=== PATIENT | female | born 1990 | race Caucasian/White ===

== ENCOUNTER 2017-12-13 14:01 | Outpatient (REF) | payer MEDICAID, SELFPAY ==
[2017-12-13 19:56] LABS: ALT 18 U/L (12-78); AST 19 U/L (15-37); Albumin 3.2 g/dL (3.4-5.0); Alkaline Phosphatase 94 U/L (46-116); Anion Gap 10.9 mmol/L (3-11); BUN 9 mg/dL (7-18); Bilirubin, Total 0.1 mg/dL (0.2-1.0); CO2 26.1 mmol/L (21.0-32.0); CREATININE 0.99 mg/dL (0.55-1.02); Calcium 8.8 mg/dL (8.5-10.1); Chloride 107 mmol/L (98-107); Glucose 126 mg/dL (70-100); HCG Quant, Pregnancy 1 mIU/mL (1-3); Potassium 3.6 mmol/L (3.5-5.1); Sodium 144 mmol/L (136-145); TSH (W/Ref FT4) 1.26 uIU/mL (0.358-3.74); Total Protein 6.8 g/dL (6.4-8.2)
== END 2017-12-13 14:21 ==
LOC: NCHCN 14:01
PROVIDERS: PCP Internal Medicine; Visit Provider Nurse Practitioner Family
DX: R63.5 Abnormal weight gain (principal); N91.2 Amenorrhea, unspecified
CPT/HCPCS: 80053; 87077; 84443; 84702; 87086; 87186; 87480; 87510; 87660

== ENCOUNTER 2018-01-03 14:34 | Outpatient (REF) | payer MEDICAID, SELFPAY ==
[2018-01-03 18:36] LABS: HCT 34.8 % (36.0-46.0); HGB 10.8 g/dL (12.0-15.5); Mean Corpuscular Hemoglobin 24.2 pg (27.0-33.0); Mean Corpuscular Volume 77.9 fL (80-95); Mean Platelet Volume 11.2 fL (8.0-11.0); Platelet Count 318 x1000/uL (130-400); RBC 4.47 m/cumm (4.00-5.20); White Blood Cell Count 8.66 k/cumm (4.4-10.8)
== END 2018-01-03 14:54 ==
LOC: NCHCN 14:34
PROVIDERS: PCP Internal Medicine; Visit Provider Nurse Practitioner Family
DX: K57.92 Diverticulitis of intestine, part unspecified, without perforation or abscess without bleeding (principal)
CPT/HCPCS: 85027

== ENCOUNTER 2018-07-27 13:01 | Outpatient (REF) | payer MEDICAID, SELFPAY ==
[2018-07-27 18:50] LABS: HCT 37.3 % (36.0-46.0); HGB 11.5 g/dL (12.0-15.5); Mean Corp. HGB Concentration 30.8 g/dL (32.0-36.0); Mean Corpuscular Hemoglobin 23.2 pg (27.0-33.0); Mean Corpuscular Volume 75.2 fL (80-95); Mean Platelet Volume 10.8 fL (8.0-11.0); Platelet Count 542 x1000/uL (130-400); RBC 4.96 m/cumm (4.00-5.20); RBC Distribution Width 17.3 % (11.7-14.6); White Blood Cell Count 6.29 k/cumm (4.4-10.8)
[2018-07-27 18:53] LABS: ALT 17 U/L (12-78); AST 23 U/L (15-37); Alkaline Phosphatase 80 U/L (46-116); Anion Gap 8.5 mmol/L (3-11); BUN 5 mg/dL (7-18); Bilirubin, Total 0.2 mg/dL (0.2-1.0); CO2 29.5 mmol/L (21.0-32.0); CREATININE 0.53 mg/dL (0.55-1.02); Calcium 8.8 mg/dL (8.5-10.1); Chloride 101 mmol/L (98-107); Glucose 78 mg/dL (70-100); Potassium 3.4 mmol/L (3.5-5.1); Sodium 139 mmol/L (136-145); Total Protein 6.7 g/dL (6.4-8.2)
== END 2018-07-27 13:21 ==
LOC: NCHCN 13:01
PROVIDERS: PCP Internal Medicine; Visit Provider Internal Medicine
DX: K50.90 Crohn's disease, unspecified, without complications (principal); R11.2 Nausea with vomiting, unspecified; F11.20 Opioid dependence, uncomplicated; J45.41 Moderate persistent asthma with (acute) exacerbation
CPT/HCPCS: 80053; 85027

== ENCOUNTER 2018-08-23 12:35 | Outpatient (REF) | payer MEDICAID, SELFPAY ==
[2018-08-23 20:55] LABS: HCT 39.7 % (36.0-46.0); HGB 12.2 g/dL (12.0-15.5); Mean Corp. HGB Concentration 30.7 g/dL (32.0-36.0); Mean Corpuscular Hemoglobin 24.4 pg (27.0-33.0); Mean Corpuscular Volume 79.6 fL (80-95); Mean Platelet Volume 10.7 fL (8.0-11.0); Platelet Count 485 x1000/uL (130-400); RBC 4.99 m/cumm (4.00-5.20); RBC Distribution Width 17.9 % (11.7-14.6); White Blood Cell Count 5.97 k/cumm (4.4-10.8)
[2018-08-23 21:06] LABS: ALT 16 U/L (12-78); AST 13 U/L (15-37); Albumin 3.7 g/dL (3.4-5.0); Alkaline Phosphatase 74 U/L (46-116); Anion Gap 9.1 mmol/L (3-11); BUN 11 mg/dL (7-18); Bilirubin, Total 0.2 mg/dL (0.2-1.0); CO2 28.9 mmol/L (21.0-32.0); CREATININE 0.71 mg/dL (0.55-1.02); Calcium 9.4 mg/dL (8.5-10.1); Chloride 101 mmol/L (98-107); Glucose 102 mg/dL (70-100); Potassium 4.5 mmol/L (3.5-5.1); Sodium 139 mmol/L (136-145); Total Protein 7.3 g/dL (6.4-8.2)
[2018-08-23 21:50] LABS: ESR 12 MM/HR (0-20)
== END 2018-08-23 12:55 ==
LOC: NCHCN 12:35
PROVIDERS: PCP Internal Medicine; Visit Provider Internal Medicine
DX: K50.90 Crohn's disease, unspecified, without complications (principal); F11.20 Opioid dependence, uncomplicated; H66.019 Acute suppurative otitis media with spontaneous rupture of ear drum, unspecified ear
CPT/HCPCS: 80053; 85027; 85652

== ENCOUNTER 2018-11-28 15:43 | Outpatient (REF) | payer MEDICAID, SELFPAY ==
[2018-11-28 18:48] LABS: Abs Immature Grans 0.05 k/cumm (0.0-0.09); Absolute Basophil Count 0.02 k/cumm (0.0-0.2); Absolute Eosinophil Count 0.02 k/cumm (0.0-0.7); Absolute Lymphocyte Count 1.34 k/cumm (1.2-3.4); Absolute Monocyte Count 0.54 k/cumm (0.11-0.7); Basophils % 0.2; Eosinophils % 0.2; HGB 11.8 g/dL (12.0-15.5); Immature Grans % 0.5; Lymphocytes % 14.3; Mean Corp. HGB Concentration 32.8 g/dL (32.0-36.0); Mean Corpuscular Hemoglobin 26.9 pg (27.0-33.0); Mean Platelet Volume 10.4 fL (8.0-11.0); Monocytes % 5.8; Platelet Count 332 x1000/uL (130-400); RBC 4.39 m/cumm (4.00-5.20); RBC Distribution Width 14.2 % (11.7-14.6); White Blood Cell Count 9.37 k/cumm (4.4-10.8)
[2018-11-28 19:05] LABS: ALT 20 U/L (12-78); AST 11 U/L (15-37); Albumin 3.4 g/dL (3.4-5.0); Alkaline Phosphatase 55 U/L (46-116); Bilirubin, Total 0.2 mg/dL (0.2-1.0); Total Protein 7.1 g/dL (6.4-8.2)
[2018-11-28 19:13] LABS: Bilirubin, Direct < 0.05 mg/dL (0.00-0.20)
== END 2018-11-28 16:03 ==
LOC: LBN 15:43
PROVIDERS: PCP Internal Medicine; Visit Provider Internal Medicine
DX: K52.9 Noninfective gastroenteritis and colitis, unspecified (principal)
CPT/HCPCS: 80076; 85025

== ENCOUNTER 2018-12-19 18:53 | Outpatient (REF) | payer MEDICAID, SELFPAY ==
[2018-12-19 18:49] LABS: HCT 32.2 % (36.0-46.0); HGB 10.4 g/dL (12.0-15.5); Mean Corp. HGB Concentration 32.3 g/dL (32.0-36.0); Mean Corpuscular Hemoglobin 26.6 pg (27.0-33.0); Mean Corpuscular Volume 82.4 fL (80-95); Mean Platelet Volume 10.8 fL (8.0-11.0); Platelet Count 377 x1000/uL (130-400); RBC 3.91 m/cumm (4.00-5.20); RBC Distribution Width 14.2 % (11.7-14.6)
[2018-12-19 18:52] LABS: Anion Gap 10.5 mmol/L (3-11); BUN 9 mg/dL (7-18); CO2 23.5 mmol/L (21.0-32.0); CREATININE 0.66 mg/dL (0.55-1.02); Calcium 8.2 mg/dL (8.5-10.1); Chloride 103 mmol/L (98-107); Glucose 95 mg/dL (70-100); Potassium 3.3 mmol/L (3.5-5.1); Sodium 137 mmol/L (136-145)
== END 2018-12-19 19:13 ==
LOC: NCHCN 18:53
PROVIDERS: PCP Internal Medicine; Visit Provider Nurse Practitioner Family
DX: K50.90 Crohn's disease, unspecified, without complications (principal)
CPT/HCPCS: 80048; 85027

== ENCOUNTER 2019-01-22 15:58 | Outpatient (REF) | payer MEDICAID, SELFPAY ==
[2019-01-22 19:39] LABS: HCT 30.3 % (36.0-46.0); HGB 9.5 g/dL (12.0-15.5); Mean Corp. HGB Concentration 31.4 g/dL (32.0-36.0); Mean Corpuscular Hemoglobin 26.2 pg (27.0-33.0); Mean Corpuscular Volume 83.7 fL (80-95); Mean Platelet Volume 9.9 fL (8.0-11.0); Platelet Count 466 x1000/uL (130-400); RBC 3.62 m/cumm (4.00-5.20); RBC Distribution Width 13.7 % (11.7-14.6); White Blood Cell Count 9.51 k/cumm (4.4-10.8)
== END 2019-01-22 16:18 ==
LOC: NCHCN 15:58
PROVIDERS: PCP Internal Medicine; Visit Provider Internal Medicine
DX: K50.90 Crohn's disease, unspecified, without complications (principal); Z33.1 Pregnant state, incidental
CPT/HCPCS: 85027

== ENCOUNTER 2019-02-13 13:48 | Outpatient (REF) | payer MEDICAID, SELFPAY ==
[2019-02-13 19:37] LABS: Abs Immature Grans 0.11 k/cumm (0.0-0.09); Absolute Basophil Count 0.02 k/cumm (0.0-0.2); Absolute Eosinophil Count 0.03 k/cumm (0.0-0.7); Absolute Lymphocyte Count 0.99 k/cumm (1.2-3.4); Absolute Monocyte Count 0.58 k/cumm (0.11-0.7); Absolute Neutrophil Count 7.54 k/cumm (1.2-6.7); Basophils % 0.2; Eosinophils % 0.3; HCT 31.4 % (36.0-46.0); HGB 9.7 g/dL (12.0-15.5); Immature Grans % 1.2; Lymphocytes % 10.7; Mean Corp. HGB Concentration 30.9 g/dL (32.0-36.0); Mean Corpuscular Hemoglobin 24.7 pg (27.0-33.0); Mean Corpuscular Volume 79.9 fL (80-95); Monocytes % 6.3; Neutrophils % 81.3; Platelet Count 466 x1000/uL (130-400); RBC 3.93 m/cumm (4.00-5.20); RBC Distribution Width 13.7 % (11.7-14.6); White Blood Cell Count 9.27 k/cumm (4.4-10.8)
[2019-02-13 19:47] LABS: ALT 15 U/L (14-59); AST 14 U/L (15-37); Albumin 2.8 g/dL (3.4-5.0); Alkaline Phosphatase 86 U/L (46-116); Bilirubin, Direct 0.06 mg/dL (0.00-0.20); Bilirubin, Total 0.1 mg/dL (0.2-1.0); Total Protein 6.7 g/dL (6.4-8.2)
== END 2019-02-13 14:08 ==
LOC: NCHCN 13:48
PROVIDERS: PCP Internal Medicine; Visit Provider Internal Medicine Gastroenterology
DX: K52.9 Noninfective gastroenteritis and colitis, unspecified (principal)
CPT/HCPCS: 80076; 85025

== ENCOUNTER 2019-08-16 16:02 | Outpatient (REF) | payer MEDICAID, SELFPAY ==
[2019-08-16 19:49] LABS: HCT 33.7 % (36.0-46.0); Mean Corp. HGB Concentration 29.7 g/dL (32.0-36.0); Mean Corpuscular Hemoglobin 22.1 pg (27.0-33.0); Mean Corpuscular Volume 74.6 fL (80-95); Mean Platelet Volume 10.6 fL (8.0-11.0); Platelet Count 675 x1000/uL (130-400); RBC 4.52 m/cumm (4.00-5.20); RBC Distribution Width 18.5 % (11.7-14.6); White Blood Cell Count 9.23 k/cumm (4.4-10.8)
[2019-08-17 08:52] LABS: VALPROIC ACID 38 ug/mL (50-100)
== END 2019-08-16 16:22 ==
LOC: NCHCN 16:02
PROVIDERS: PCP Internal Medicine; Visit Provider Internal Medicine
DX: D64.9 Anemia, unspecified (principal); F31.9 Bipolar disorder, unspecified; Z51.81 Encounter for therapeutic drug level monitoring
CPT/HCPCS: 85027; 80164

== ENCOUNTER 2019-11-28 19:09 | Outpatient (REF) | payer MEDICAID, SELFPAY ==
[2019-11-28 21:30] LABS: HCT 34.3 % (36.0-46.0); HGB 9.8 g/dL (11.2-15.7); MCH 20.5 pg (27.0-33.0); MCHC 28.6 % (32.0-36.0); MCV 71.8 fL (80-95); MPV 10.3 fL (8.0-11.0); Platelet Count 342 10^3/uL (130-400); RBC 4.78 10^6/uL (3.93-5.22); RDW 16.6 % (11.7-14.6); RDW-SD 42.3 fL; WBC 7.13 10^3/uL (4.4-10.8)
[2019-11-28 21:48] LABS: ALT 15 U/L (14-59); AST 12 U/L (15-37); Albumin 4.2 g/dL (3.4-5.0); Alkaline Phosphatase 65 U/L (46-116); Anion Gap 11.8 mmol/L (3-11); BUN 10 mg/dL (7-18); Bilirubin, Total 0.4 mg/dL (0.2-1.0); C-Reactive Protein 0.19 mg/dL (0.0-0.3); CO2 26.2 mmol/L (21.0-32.0); CREATININE 0.72 mg/dL (0.55-1.02); Calcium 9.3 mg/dL (8.5-10.1); Chloride 102 mmol/L (98-107); Glucose 93 mg/dL (74-106); Potassium 3.7 mmol/L (3.5-5.1); Sodium 140 mmol/L (136-145); Total Protein 7.8 g/dL (6.4-8.2)
[2019-11-30 11:45] LABS: Lyme Ab w Rflx to Lyme Confirm Negative (Negative)
== END 2019-11-28 19:29 ==
LOC: NCHCN 19:09
PROVIDERS: PCP Internal Medicine; Visit Provider Internal Medicine
DX: K50.90 Crohn's disease, unspecified, without complications (principal); M25.50 Pain in unspecified joint
CPT/HCPCS: 80053; 85027; 86140; 86618

== ENCOUNTER 2020-01-02 12:22 | Outpatient (REF) | payer MEDICAID, SELFPAY ==
[2020-01-02 21:02] LABS: C-Reactive Protein 0.19 mg/dL (0.0-0.3)
[2020-01-02 21:46] LABS: ESR 10 mm/hr (0-20)
== END 2020-01-02 12:42 ==
LOC: NCHCN 12:22
PROVIDERS: PCP Internal Medicine; Visit Provider Physician Assistant
DX: M79.7 Fibromyalgia (principal)
CPT/HCPCS: 85652; 86140

== ENCOUNTER 2020-02-22 16:04 | Outpatient (REF) | payer MEDICAID, SELFPAY ==
[2020-02-22 20:08] LABS: Abs Immature Grans 0.03 10^3/uL (0.0-0.06); Absolute Basophil Count 0.06 10^3/uL (0.0-0.2); Absolute Eosinophil Count 0.03 10^3/uL (0.0-0.7); Absolute Lymphocyte Count 1.32 10^3/uL (1.2-3.4); Absolute Monocyte Count 0.38 10^3/uL (0.1-0.8); Absolute Neutrophil Count 4.98 10^3/uL (1.2-6.7); Basophils % 0.9; Eosinophils % 0.4; HCT 34.5 % (36.0-46.0); HGB 9.7 g/dL (11.2-15.7); Immature Grans % 0.4; Lymphocytes % 19.4; MCH 20.4 pg (27.0-33.0); MCHC 28.1 % (32.0-36.0); MCV 72.5 fL (80-95); MPV 10.6 fL (8.0-11.0); Monocytes % 5.6; Neutrophils % 73.3; Nucleated RBC 0 %; Platelet Count 537 10^3/uL (130-400); RBC 4.76 10^6/uL (3.93-5.22); RDW 16.4 % (11.7-14.6); RDW-SD 42.7 fL
[2020-02-22 20:31] LABS: Diff Comment RBC Morph Reviewed
[2020-02-22 20:32] LABS: ALT 14 U/L (14-59); AST 9 U/L (15-37); Alkaline Phosphatase 64 U/L (46-116); Bilirubin, Direct 0.08 mg/dL (0.00-0.20); Bilirubin, Total 0.3 mg/dL (0.2-1.0); Lipase 95 U/L (73-393); Microcytosis 2+; Total Protein 7.4 g/dL (6.4-8.2)
[2020-02-22 20:33] LABS: Poikilocytes 1+
== END 2020-02-22 16:24 ==
LOC: NCHCN 16:04
PROVIDERS: Internal Medicine Gastroenterology; PCP Internal Medicine; Visit Provider Internal Medicine
DX: K50.90 Crohn's disease, unspecified, without complications (principal); D64.9 Anemia, unspecified; F50.9 Eating disorder, unspecified
CPT/HCPCS: 80076; 83690; 85025

== ENCOUNTER 2020-05-23 19:53 | Outpatient (REF) | payer MEDICAID, SELFPAY ==
[2020-05-26 16:43] LABS: COVID-19 RT-PCR UVMMC Result Negative (Negative)
== END 2020-05-23 19:54 | disposition home or self-care (01) ==
LOC: NCHCN 19:53
PROVIDERS: PCP Internal Medicine; Visit Provider Internal Medicine
DX: Z20.822 Contact with and (suspected) exposure to COVID-19 (principal)
CPT/HCPCS: U0003

== ENCOUNTER 2020-08-26 15:20 | Outpatient (REF) | payer MEDICAID, SELFPAY ==
[2020-08-26 18:42] LABS: Iron 21 ug/dL (50-170)
[2020-08-26 19:11] LABS: Ferritin 10 ng/mL (8-252); Folate 5.3 ng/mL (8.6-20.0); Vitamin B12 980 pg/mL (193-986)
[2020-08-26 22:11] LABS: Total Iron Binding Capacity 418 ug/dL (250-450); Transferrin Sat 5 % (15-50)
== END 2020-08-26 15:21 | disposition home or self-care (01) ==
LOC: NCHCN 15:20
PROVIDERS: PCP Internal Medicine; Visit Provider Physician Assistant
DX: K50.90 Crohn's disease, unspecified, without complications (principal); R60.0 Localized edema
CPT/HCPCS: 82607; 82728; 82746; 83540; 83550

== ENCOUNTER 2021-05-07 15:49 | Outpatient (REF) | payer MEDICAID, SELFPAY ==
[2021-05-08 16:21] LABS: COVID-19 RT-PCR UVMMC Result Negative (Negative)
== END 2021-05-07 15:50 | disposition home or self-care (01) ==
LOC: LBN 15:49
PROVIDERS: PCP Internal Medicine; Visit Provider Physician Assistant Medical
DX: R30.0 Dysuria (principal); Z20.822 Contact with and (suspected) exposure to COVID-19
CPT/HCPCS: U0003; 87086

== ENCOUNTER 2021-05-11 16:01 | Emergency (ER) | payer MEDICAID, SELFPAY ==
[2021-05-11 16:08] VITALS: BP 112/68; PULSE 99; RESP 16; TEMP 36.9; O2SAT 99
[2021-05-11 16:29] LABS: Bilirubin Negative (Negative); Blood Negative (Negative); Clarity Clear (Clear); Glucose Negative (Negative); Ketones Negative (Negative); Leukocyte Esterase Moderate (Negative); Nitrite Negative (Negative); Specific Gravity 1.015 (1.005-1.025); Urobilinogen 0.2 EU/dL (Up TO 0.2); pH 7.5 (5-8)
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
[2021-05-11 16:41] LABS: Bacteria Rare HPF (Negative); C & S Indicated? Yes; Crystals Negative HPF (Negative); Epithelial Cells Few HPF (Negative); Mucus Negative (Negative); Other Cells Few Transitional (Negative); RBC 0-2 HPF (0-2)
[2021-05-11] MEDS: Ondansetron O.D.T. 4 MG TABEF (17:13)
[2021-05-11 17:14] LABS: *AMPHETAMINES SCREEN URINE Negative (Negative); *BARBITURATES SCREEN URINE Negative (Negative); *BENZODIAZEPINES SCREEN URINE Negative (Negative); Cannabinoids THC Negative (Negative); Cocaine Screen,Urine Negative (Negative); METHADONE URINE SCREEN Negative (Negative); OPIATES URINE SCREEN Negative (Negative); Tricyclic Antidepressants Negative (Negative)
[2021-05-11 17:19] LABS: Abs Immature Grans 0.07 10^3/uL (0.0-0.06); Absolute Basophil Count 0.06 10^3/uL (0.0-0.2); Absolute Eosinophil Count 0.11 10^3/uL (0.0-0.7); Absolute Lymphocyte Count 1.66 10^3/uL (1.2-3.4); Absolute Monocyte Count 1.16 10^3/uL (0.1-0.8); Absolute Neutrophil Count 8.07 10^3/uL (1.2-6.7); Basophils % 0.5; HCT 30.2 % (36.0-46.0); Immature Grans % 0.6; Lymphocytes % 14.9; MCH 22.7 pg (27.0-33.0); MCHC 29.8 % (32.0-36.0); MCV 76.3 fL (80-95); MPV 9.1 fL (8.0-11.0); Monocytes % 10.4; Neutrophils % 72.6; Nucleated RBC 0 %; Platelet Count 531 10^3/uL (130-400); RBC 3.96 10^6/uL (3.93-5.22); RDW 14.2 % (11.7-14.6); RDW-SD 38.9 fL; WBC 11.11 10^3/uL (4.4-10.8)
[2021-05-11 17:27] LABS: Hemoglobin A1C 6.1 % (<5.7)
[2021-05-11 17:57] LABS: ALT 13 U/L (14-59); AST 9 U/L (15-37); Albumin 3.2 g/dL (3.4-5.0); Alkaline Phosphatase 81 U/L (46-116); Anion Gap 8.8 mmol/L (3-11); BUN 10 mg/dL (7-18); Bilirubin, Total 0.1 mg/dL (0.2-1.0); CO2 28.2 mmol/L (21.0-32.0); CREATININE 0.7 mg/dL (0.55-1.02); Calcium 8.6 mg/dL (8.5-10.1); Calculated LDL 68 mg/dL (<100); Chloride 102 mmol/L (98-107); Cholesterol 145 mg/dL (<200); Ferritin 5 ng/mL (8-252); Folate 6.4 ng/mL (8.6-20.0); Glucose 97 mg/dL (74-106); HDL Cholesterol 49 mg/dL (40-60); Magnesium 1.9 mg/dL (1.8-2.4); Potassium 3.8 mmol/L (3.5-5.1); Sodium 139 mmol/L (136-145); TSH (W/Ref FT4) 1.67 uIU/mL (0.36-3.74); Total Protein 7.3 g/dL (6.4-8.2); Triglyceride 141 mg/dL (<150); Vitamin B12 559 pg/mL (193-986)
[2021-05-11 18:04] LABS: C-Reactive Protein 0.37 mg/dL (0.0-0.3)
[2021-05-11] MEDS: oxyCODONE 5 mg/Acetaminophen 325 mg TAB 1 TAB PO (18:04)
[2021-05-11] MEDS: Doxycycline Hyclate 100 MG CAP PO (18:04)
[2021-05-11 18:10] VITALS: BP 102/70; PULSE 104; RESP 12; TEMP 36.3; O2SAT 98
[2021-05-11] MEDS: Lidocaine 1% Multi-Dose 50 ML VIAL (19:40)
[2021-05-11 19:41] VITALS: BP 110/71; PULSE 108; RESP 18; O2SAT 97
[2021-05-11] MEDS: cefTRIAXone 500 MG VIAL IM (19:41)
--- NOTE | 2021-05-12 07:30 | NUR.NOTE ---
Faxed to [facility] the outpt request pelvic US for pelvic pain, PID, needed signature and Dr Snow signed it and done. Dorina Doran Nursing Note:
[2021-05-13 10:04] LABS: Hepatitis B Surface Ag Negative (Negative)
[2021-05-13 11:01] LABS: HIV-1/2 Ag & Ab Screen Negative (Negative)
[2021-05-13 14:26] LABS: Chlamydia Result Negative (Negative); GC Result Negative (Negative)
[2021-05-13 16:16] LABS: HSV 1 DNA Result Negative (Negative); HSV 2 DNA Result Negative (Negative)
[2021-05-15 11:45] LABS: 1,25-Dihydroxyvitamin D 35 pg/mL (18-78)
== END 2021-05-11 19:43 | disposition home or self-care (01) ==
PROVIDERS: Emergency Provider Physician Assistant; PCP Internal Medicine
DX: N73.0 Acute parametritis and pelvic cellulitis (principal); N76.5 Ulceration of vagina; N76.6 Ulceration of vulva; R11.10 Vomiting, unspecified
CPT/HCPCS: 36415; 80053; 80061; 80307; 81025; 87340; 87389; 87491; 87529; 87591; 96372; 99284; 81003; 81015; 82607; 82652; 82728; 82746; 83036; 83735; 84443; 85025; 86140; 87086; 87480; 87510; 87660; 99283; J0696

== ENCOUNTER 2021-07-23 15:25 | Outpatient (REF) | payer MEDICAID, SELFPAY ==
[2021-07-23 21:28] LABS: Abs Immature Grans 0.03 10^3/uL (0.0-0.06); Absolute Basophil Count 0.05 10^3/uL (0.0-0.2); Absolute Eosinophil Count 0.03 10^3/uL (0.0-0.7); Absolute Lymphocyte Count 1.22 10^3/uL (1.2-3.4); Absolute Neutrophil Count 5.59 10^3/uL (1.2-6.7); Basophils % 0.7; Eosinophils % 0.4; HCT 38.9 % (36.0-46.0); HGB 10.8 g/dL (11.2-15.7); Immature Grans % 0.4; Lymphocytes % 16.7; MCH 21.2 pg (27.0-33.0); MCHC 27.8 % (32.0-36.0); MCV 76.4 fL (80-95); Monocytes % 5.5; Neutrophils % 76.3; Platelet Count 525 10^3/uL (130-400); RBC 5.09 10^6/uL (3.93-5.22); RDW 16.4 % (11.7-14.6); RDW-SD 45.3 fL; WBC 7.32 10^3/uL (4.4-10.8)
[2021-07-23 21:29] LABS: ALT 16 U/L (14-59); AST 18 U/L (15-37); Albumin 3.1 g/dL (3.4-5.0); Alkaline Phosphatase 64 U/L (46-116); Anion Gap 6.1 mmol/L (3-11); BUN 9 mg/dL (7-18); Bilirubin, Total 0.1 mg/dL (0.2-1.0); CO2 29.9 mmol/L (21.0-32.0); CREATININE 0.8 mg/dL (0.55-1.02); Chloride 103 mmol/L (98-107); Glucose 92 mg/dL (74-106); Potassium 5.1 mmol/L (3.5-5.1); Sodium 139 mmol/L (136-145); Total Protein 6.6 g/dL (6.4-8.2)
[2021-07-23 22:05] LABS: Diff Comment PLT Morph Reviewed
[2021-07-23 22:09] LABS: Burr Cells (echinocyte) 2+; Hypochromasia 2+; Schistocytes 1+
[2021-07-23 22:11] LABS: Poikilocytes 2+
== END 2021-07-23 15:26 | disposition home or self-care (01) ==
LOC: NCHCN 15:25
PROVIDERS: PCP Internal Medicine; Visit Provider Physician Assistant
DX: R11.0 Nausea (principal); F31.9 Bipolar disorder, unspecified; K50.90 Crohn's disease, unspecified, without complications
CPT/HCPCS: 80053; 85025

== ENCOUNTER 2021-09-17 17:21 | Outpatient (REF) | payer MEDICAID, SELFPAY ==
[2021-09-17 18:43] LABS: HCT 33.8 % (36.0-46.0); HGB 9.9 g/dL (11.2-15.7); MCH 21.2 pg (27.0-33.0); MCHC 29.3 % (32.0-36.0); MCV 73 fL (80-95); MPV 9.1 fL (8.0-11.0); Platelet Count 527 10^3/uL (130-400); RBC 4.66 10^6/uL (3.93-5.22); RDW 16.3 % (11.7-14.6); RDW-SD 42.3 fL; WBC 9.24 10^3/uL (4.4-10.8)
== END 2021-09-17 17:22 | disposition home or self-care (01) ==
LOC: NCHCN 17:21
PROVIDERS: PCP Internal Medicine; Visit Provider Nurse Practitioner Family
DX: K50.00 Crohn's disease of small intestine without complications (principal); K92.1 Melena
CPT/HCPCS: 85027

== ENCOUNTER 2022-04-09 17:46 | Outpatient (REF) | payer MEDICAID, SELFPAY ==
[2022-04-09 19:04] LABS: HCT 36.7 % (36.0-46.0); MCV 77 fL (80-95); MPV 10.6 fL (8.0-11.0); Platelet Count 399 10^3/uL (130-400); RBC 4.78 10^6/uL (3.93-5.22); RDW 15.8 % (11.7-14.6); RDW-SD 43.8 fL; WBC 7.71 10^3/uL (4.4-10.8)
[2022-04-09 19:06] LABS: ESR 16 mm/hr (0-20)
[2022-04-09 19:49] LABS: ALT 17 U/L (14-59); AST 20 U/L (15-37); Albumin 3.3 g/dL (3.4-5.0); Alkaline Phosphatase 81 U/L (46-116); BUN 7 mg/dL (7-18); Bilirubin, Total 0.1 mg/dL (0.2-1.0); CREATININE 0.9 mg/dL (0.55-1.02); Calcium 8.9 mg/dL (8.5-10.1); Chloride 101 mmol/L (98-107); Glucose 96 mg/dL (74-106); Potassium 3.9 mmol/L (3.5-5.1); Sodium 137 mmol/L (136-145); Vitamin B12 621 pg/mL (193-986)
[2022-04-09 20:01] LABS: C-Reactive Protein 0.17 mg/dL (0.0-0.3)
[2022-04-12 10:44] LABS: Hepatitis C Ab w Rflx HCV PCR Negative (Negative)
[2022-04-12 13:59] LABS: Chlamydia Result Negative (Negative); GC Result Negative (Negative)
== END 2022-04-09 17:47 | disposition home or self-care (01) ==
LOC: NCHCN 17:46
PROVIDERS: PCP Internal Medicine; Visit Provider Internal Medicine
DX: K50.90 Crohn's disease, unspecified, without complications (principal); Z11.3 Encounter for screening for infections with a predominantly sexual mode of transmission; Z11.59 Encounter for screening for other viral diseases
CPT/HCPCS: 80053; 82306; 85027; 85652; 86803; 87491; 87591; 82607; 86140

== ENCOUNTER 2023-06-28 12:24 | Outpatient (REF) | payer MEDICAID, SELFPAY ==
[2023-06-30 13:12] LABS: Chlamydia Result Negative (Negative); GC Result Negative (Negative)
== END 2023-06-28 12:25 | disposition home or self-care (01) ==
LOC: NCHCN 12:24
PROVIDERS: PCP Internal Medicine; Visit Provider Nurse Practitioner Family
DX: A56.02 Chlamydial vulvovaginitis (principal)
CPT/HCPCS: 87491; 87591

== ENCOUNTER 2024-08-21 17:46 | Outpatient (REF) | payer MEDICAID, SELFPAY ==
[2024-08-23 09:02] LABS: Hepatitis C Ab w Rflx HCV PCR Negative (Negative)
[2024-08-23 09:21] LABS: Hepatitis B Surface Ag Negative (Negative)
[2024-08-23 10:08] LABS: HIV-1/2 Ag & Ab Screen Negative (Negative)
[2024-08-23 10:48] LABS: Syphilis Serology (RPR) Negative (Negative)
[2024-08-23 13:20] LABS: Chlamydia Result Negative (Negative); GC Result Negative (Negative)
== END 2024-08-21 17:47 | disposition home or self-care (01) ==
LOC: NCHCN 17:46
PROVIDERS: PCP Internal Medicine; Visit Provider Physician Assistant
DX: Z11.59 Encounter for screening for other viral diseases (principal)
CPT/HCPCS: 86803; 87340; 87389; 87491; 87591; 86592

== ENCOUNTER 2024-08-24 19:05 | Outpatient (REF) | payer MEDICAID, SELFPAY ==
--- NOTE | 2024-08-24 15:00 | PAPFT_PTH ---
PATIENT: Mihaela Fritz LOC: [facility] U#:[id number] AGE/SX: 34/F ROOM: RE08/24/[address]: Romel Damon : 1990 BED: DIS: 08/24/2024 SPEC #: [id number] RECD: 08/27/24 13:01 STATUS: TON DHILLON #: [id number] BILL: 08/24/24 15:[address]: Romel Damon DEPT: [facility] Cytology RECD BY: Mary Jane Mathew Tissues: 1 - CX/ENDOCX FOR PAP SMEARS Procedures: PAP THIN PREP/UVM Screening HPV DNA PROBE Comments: [id number] (HPV 16 & 18/45)
== END 2024-08-24 19:06 | disposition home or self-care (01) ==
LOC: NCHCN 19:05
PROVIDERS: PCP Internal Medicine; Visit Provider Internal Medicine
DX: Z11.51 Encounter for screening for human papillomavirus (HPV) (principal); Z01.419 Encounter for gynecological examination (general) (routine) without abnormal findings
CPT/HCPCS: 88142; 87624